=== PATIENT | female | born 1985 | race Two or more races ===

== ENCOUNTER 2024-04-14 10:45 | Emergency (ER) | payer OTHER ==
[~2024-04-14] VITALS: Ht 157.5 cm; Wt 67.1 kg
[2024-04-14] MEDS ORDERED: PROMETHAZINE HC25 M1 PO (11:24)
[2024-04-14] MEDS ORDERED: PROMETHAZINE HCL 25 MG TAB PO ONE (11:30)
[2024-04-14] MEDS ORDERED: ACETAMINOPHEN 500 MG TAB PO ONE (11:30)
[2024-04-14] MEDS ORDERED: METOCLOPRAMIDE HCL 10 MG/2 ML SDV IV ONE (12:00)
[2024-04-14] MEDS ORDERED: SODIUM CHLORIDE 0.9% 1,000 ML IV ONE (12:00)
[2024-04-14 12:24] LABS: HEMATOCRIT 37.9 % (35.0-50.0); HEMOGLOBIN 12.9 g/dL (12.0-18.0); MCH 30.7 (27-36); MCV 90.3 fl (81-99); PLATELET COUNT 246 K/uL (140-440); RBC 4.19 M/ul (4.3-5.7); RDW 13.3 (10.5-15.0)
[2024-04-14 12:59] LABS: BANDS, MANUAL DIFF 26; BASOPHILS, MANUAL DIFF 1; LYMPHOCYTES, MANUAL DIFF 16; MONOCYTES, MANUAL DIFF 4; NEUTROPHILS, MANUAL DIFF 53
[2024-04-14 13:00] LABS: EOSINOPHILS, MANUAL DIFF 0
[2024-04-14 13:15] LABS: ALBUMIN 3.2 g/dL (3.4-5.0); ALBUMIN/GLOBULIN RATIO 0.94 (1.1-2.4); ANION GAP 14.7 (7-21); BILIRUBIN, TOTAL 0.3 ng/dL (0.2-1.0); BUN/CREATININE RATIO 16.94 (6.0-28.6); CALCIUM 8.2 mg/dL (8.5-10.1); CREATININE, SERUM 0.59 mg/dL (0.55-1.02); POTASSIUM 3.7 mmol/L (3.5-5.1); PROTEIN, TOTAL 6.6 g/dL (6.4-8.2)
[2024-04-14] MEDS ORDERED: REGLAN10 MG PO (14:03)
[2024-04-14 14:10] VITALS: BP 101/58
== END 2024-04-14 14:10 | disposition home or self-care (01) ==
LOC: ED 10:45
PROVIDERS: Emergency Medicine
DX: B34.9 Viral infection, unspecified (principal)
CPT/HCPCS: 36415; 80053; 85025; 96374; 99284-25; A9270; J2765; J7030